=== PATIENT | female | born 2000 | race Caucasian/White ===

== ENCOUNTER 2025-01-15 19:18 | Emergency (ER) | payer BC, SELFPAY ==
--- NOTE | ~2025-01-15 | CT_ITS ---
History: Blunt head trauma PROCEDURE: CT head without contrast. COMPARISON: None TECHNIQUE: Axial imaging of the head performed from the skull base to the vertex without IV contrast. Sagittal a nd coronal reformations obtained. Examination is somewhat limited secondary to motion artifact DLP: 605 mGy-cm FINDINGS: The ventricles are normal in size, shape and position. There is no mass, mass effect or midline shift. There is no abnormal extra-axial fluid collection or intracranial hemorrhage. Visualized paranasal sinuses are clear. The mastoid air cells are well aerated. No acute displaced fractures within the overlying cranium. Impression: No acute intracranial hemorrhage or suspicious mass effect. Reviewed, dictated and finalized at location A. Impression: No acute intracranial hemorrhage or suspicious mass effect.
[2025-01-15 19:17] VITALS: BP 126/74; PULSE 89; RESP 19; TEMP 36.9; O2SAT 100
[2025-01-15] MEDS: HYDROGEN PEROXIDE 3% SOLN(*SP) 473 ML BOTTLE (19:38)
[2025-01-15 20:09] VITALS: BP 126/74; PULSE 89; RESP 19; TEMP 36.9; O2SAT 100
--- NOTE | 2025-01-15 20:12 | ED_ITS ---
HPI - General Adult General Chief complaint: Head Injury Stated complaint: HEAD INJURY Time Seen by Provider: 01/15/25 19:22 History of Present Illness HPI narrative: This is a 24-year-old female presenting with a head injury. She found out tissue failed blood her college courses and kicked a steel bar off of her bed which then struck her on top of her head on the edge. She did not have loss of conscious but she did immediately started bleeding. No persistent vomiting. His blood thinners or alcohol. No numbness tingling weakness in the extremity. Exam Narrative: APPEARANCE: No apparent distress. Head: 3 cm scalp laceration over the parietal region EYES: EOMI, NOSE: Atraumatic NECK: Trachea midline RESPIRATORY: No increased rate of breathing CARDIOVASCULAR: RRR, ABDOMINAL: Non-distended MUSCULOSKELETAl: No obvious deformities NEURO: Alert. Cranial nerves 2-12 grossly intact. Sensation light touch, motor function cerebellar function intact for 4 extremities. Gait exam was normal. SKIN:: Warm, dry. Normal color PSYCHIATRIC: Normal affect Course Vital Signs Vital signs: Vital Signs Temperature 98.4 F 01/15/25 19:17 Pulse Rate 89 01/15/25 19:17 Respiratory Rate 19 01/15/25 19:17 Blood Pressure 126/74 01/15/25 19:17 Pulse Oximetry 100 01/15/25 19:17 Oxygen Delivery Room Air 01/15/25 19:17 Temperature 98.4 F 01/15/25 20:09 Pulse Rate 89 01/15/25 20:09 Respiratory Rate 19 01/15/25 20:09 Blood Pressure 126/74 01/15/25 20:09 Pulse Oximetry 100 01/15/25 20:09 Oxygen Delivery Room Air 01/15/25 19:17 Procedures Laceration Laceration 1: Date: 01/15/25 Site: scalp Side (If applicable): right Size (cm): 3 Description: linear Depth: simple, single layer Local Anesthetic: bupivacaine 0.25% Amount of anesthesia used (mL): 5 Pre-repair: wound explored and irrigated extensively ====== Skin Level ====== Skin layer closed with: saw Size (cm): other Number of sutures: 7 ====== Subcutaneous Layer ====== ====== Muscle Layer ====== ====== Tendon Layer ====== Medical Decision Making MDM Narrative Medical decision making narrative: -Course: 24-year-old female presenting after a steel michael dropped on head. A 3 cm laceration was repaired with sutures. CT head was negative for skull fracture intracranial hemorrhage. Patient be discharged primary care physician. Given return precautions. -DDX includes but is not limited to: Intracranial hemorrhage, concussion, scalp laceration Vital Signs Vital Signs: Vital Signs Temperature 98.4 F 01/15/25 19:17 Pulse Rate 89 01/15/25 19:17 Respiratory Rate 19 01/15/25 19:17 Blood Pressure 126/74 01/15/25 19:17 Pulse Oximetry 100 01/15/25 19:17 Oxygen Delivery Room Air 01/15/25 19:17 Temperature 98.4 F 01/15/25 20:09 Pulse Rate 89 01/15/25 20:09 Respiratory Rate 19 01/15/25 20:09 Blood Pressure 126/74 01/15/25 20:09 Pulse Oximetry 100 01/15/25 20:09 Oxygen Delivery Room Air 01/15/25 19:17 Discharge Plan Discharge Clinical Impression: Closed head injury, Laceration of scalp Patient Disposition: Home Condition: Stable Instructions: Antibiotic Form, Concussion (ED), Staple Care (ED), Head Laceration (ED) Additional Instructions: You were seen in the emergency department after a steel pipe dropped on your head. The saw should be removed by medical professional in 5-7 days. Ple ase follow-up your primary care physician further management. Return to the ED if you develop any new or worsening symptoms. Patient Language: Kazakh
--- OUTSIDE RECORDS SUMMARY | 2025-01-15 20:56 | XMS_ITS | Encounter Summary ---
Author Organization [facility] Address [address] [place] [address] Care Team Providers Care Prosthetic Dentist Name Role Phone Missy Barth [facility] Primary Care Provider Siva Tesfaye MD Unavailable [phone] Jammie Kaur MD Primary Care Provider [phone] Encounter Details Date Type Department Care Team (Late Contact Info) Description 10/17/2021 MyChart Message Enc [address] [address] Missy Barth [facility] Blood Work Social History Tobacco Use Types Packs/Day Years Used Date Smoking Tobacco: Never Smokeless Tobacco: Never Alcohol Use Standard Drinks/Week Comments Never 0 (1 standard drink = 0.6 oz pur e alcohol) PHQ-2 Answer Date Recorded PHQ-2 Score - If the patient scores above 3, please move on to questions 3-9 4 08/09/2021 Comments No Sex and Gender Information Value Date Recorded Sex Assigned at Female 10/09/2024 7:58 AM TUNNEL MUCKER Legal Sex Female 8:26 PM CDT Gender Identity Not on file Sexual Orientation Not on file COVID-19 Exposure Response Date Recorded In the last month, have you been in contact with someone who was confirmed or suspected to have Coronavirus / COVID-19? No / Unsure 10/10/2021 10:06 AM TUNNEL MUCKER documented as of this encounter Plan of Treatment Upcoming Encounters Date Type Department Care Team (Late Contact Info) Description 03/11/2025 3:20 PM CDT Office Visit [facility] Family Medicine [facility] [address] [place] [phone] Jammie Kaur MD [address] [place] [address] documented as of this encounter Visit Diagnoses Not on filedocumented in this encounter Additional Health Concerns Assessment Noted Time PHQ-9 Depression Total Score: 19 021 8:08 AM TUNNEL MUCKER documented as of this encounter Care Teams Prosthetic Dentist Relationship Specialty Start Date End Date Missy Barth [facility] PCP - General NURSE PRACTITIONER 01/19/21 04/06/24 Jammie Kaur MD [address] [place] [address] PCP - General FAMILY PRACTICE 04/07/24 Siva Bliss MD [address] [place] [phone] Psychiatry 08/09/21 documented as of this encounter
--- OUTSIDE RECORDS SUMMARY | 2025-01-15 20:56 | XMS_ITS | Encounter Summary ---
Author Organization [facility] Address [address] [place] [address] Care Team Providers Care Cash Management Clerk Name Role Phone [facility] Primary Care Provider Siva Tesfaye MD Unavailable [phone] Jammie Kaur MD Primary Care Provider [phone] Encounter Details Date Type Department Care Team (Late st Contact Info) Description 02/12/2022 MyChart Message Enc [facility] Orthopedic & Sports Medicine - [place] [address] [place] [address] Dallas Blake MD [address] [place] [address] My Pinky Social History Tobacco Use Types Packs/Day Years [...] Sex Assigned at Female 10/09/2024 7:58 AM INSURANCE CLAIM REPRESENTATIVE Legal Sex Female 8:26 PM CDT Gender Identity Not on file Sexual Orientation Not on file COVID-19 Exposure Response Date Recorded In the last 10 days, have yo u been in contact with someone who was confirmed or suspected to have Coronavirus/COVID-19? No / Unsure 01/25/2022 10:28 AM CDT documented as of this encounter Plan of Treatment Upcoming Encounters Date Type Department Care Team (Late st Contact Info) Description 03/11/2025 3:20 PM CDT Office Visit [facility] Family Medicine [facility] [address] [place] [address] Jammie Kaur MD [address] [place] [address] documented as of this encounter Visit Diagnoses Not on filedocumented in this encounter Additional Health Concerns Assessment Noted Time PHQ-9 Depression Total Score: 19 021 8:08 AM INSURANCE CLAIM REPRESENTATIVE documented as of this encounter Care Teams Cash Management Clerk Relationship Specialty Start Date End Date [facility] PCP - General NURSE PRACTITIONER 01/19/21 04/06/24 Jammie Kaur MD [address] [place] [address] PCP - General FAMILY PRACTICE 04/07/24 Siva Bliss MD [address] [place] [phone] Psychiatry 08/09/21 documented as of this encounter
--- OUTSIDE RECORDS SUMMARY | 2025-01-15 20:56 | XMS_ITS | Encounter Summary ---
Author Organization [facility] Address [address] [place] [address] Care Team Providers Care Potable Water Treatment Operator Name Role Phone Jaredjared Missy [facility] Primary Care Provider Siva Tesfaye MD Unavailable [phone] Jammie Kaur MD Primary Care Provider [phone] Encounter Details Date Type Department Care Team (Late Contact Info) Description 12/18/2023 [employer] Message Enc [address] [address] [facility] Provider please call office Social History Tobacco Use Types Packs/Day Years Used Date Smoking Tobacco: Never Smokeless Tobacco: Never Alcohol Use Standard Drinks/Week Comments Never 0 (1 standard drink = 0.6 oz pur e alcohol) PHQ-2 Answer Date Recorded Patient Health Questionnaire-2 Score 0 12/17/2023 Comments No Sex and Gender Information Value Date Recorded Sex Assigned at Female 10/09/2024 7:58 AM LABORATORY APPARATUS GLASS GRINDER Legal Sex Female 8:26 PM CDT Gender Identity Not on file Sexual Orientation Not on file documented as of this encounter Plan of Treatment Upcoming Encounters Date Type Department Care Team (Late Contact Info) Description 03/11/2025 3:20 PM CDT Office Visit [address] [address] [place] [address] [place] [address] documented as of this encounter Visit Diagnoses Not on filedocumented in this encounter Additional Health Concerns Assessment Noted Time PHQ-9 Depression Total Score: 0 12/17/19 24 1:27 PM CDT documented as of this encounter Care Teams Potable Water Treatment Operator Relationship Specialty Start Date End Date [facility] PCP - General NURSE PRACTITIONER 01/19/21 04/06/24 Jammie Kaur MD [address] [place] [address] PCP - General FAMILY PRACTICE 04/07/24 Siva Bliss MD [address] [place] [address] Psychiatry 08/09/21 documented as of this encounter
--- OUTSIDE RECORDS SUMMARY | 2025-01-15 20:56 | XMS_ITS | Clinical Summary ---
Author Organization [facility] Address [address] [place] [address] Care Team Providers Care General Medical Practitioner Name Role Phone Siva Bliss MD Unavailable [phone] Jammie Kaur MD Primary Care Provider [phone] Allergies Active Allergy Reactions Criticality Noted Date Comments Penicillins Hives Medium 05/04/2019 Sulfa Antibiotics Rash Low 01/19/2021 Medications triamcinolone (KENALOG) 0.1 % ointment Apply topically as needed. Active buPROPion XL (WELLBUTRIN XL) 150 MG 24 hr tabletIndication s:Anxiety Take 1 tablet (150 mg total) by mouth daily. 90 tablet 1 5 Active ibuprofen (MOTRIN) 800 MG tabletIndication s:Sprain of anterior talofibular ligament of left ankle, initial encounter Take 1 tablet (800 mg total) by mouth every 6 (six) hours as needed for Pain. 90 tablet 1 5 Active escitalopram (LEXAPRO) 20 MG tabletIndication s:Situational anxiety Take 1 tablet (20 mg total) by mouth daily. 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 Chronic low back pain withou t sciatica, unspecified back pain laterality 05/13/2020 Tinea versicolor 05/13/2020 ADHD 12/08/2019 Anxiety 05/13/2019 Episodic mood disorder 05/13/2019 Resolved Problems Problem Noted Date Diagnosed Date Resolved Date Hematuria, unspecified type 12/08/2019 01/19/2021 Dysuria 12/08/2019 01/19/2021 Encounters Date Type Department Care Team Description 10/19/2024 Telephone [facility] [address] [address] Jammie Kaur MD Question; Information from Last 3 Months Immunizations Immunization Administration Dates Next Due Dtap 06/21/2007, 4,2002,09/26,2002 Dtap (Generic) 06/21/2007, 4,2002,09/26,2002 Fluzone (IIV3, Trivalent, 0. 5 ML Prefilled Syringe) 10/16/2024 Fluzone 6 Months+ Quad (0.5 mL Prefilled Syringe) 08/09/2022 HPV 07/13/2016,06/27/2015,06/25/2014 HPV GARDASIL 9-VALENT 07/13/2016,06/27/2015 HPV4 (Gardasil) 06/25/2014 Hepatitis A (Generic) 07/14/2005,06/10/2004 Hepatitis A Vaccine - 2 Dose 07/14/2005,06/10/20 04 Hepatitis B (Generic Peds) 04/28/2003,,2002,04/28 Hepatitis B Pediatric 04/28/2003, 003,2002,04/28 Hib (Generic) 08/14/2003, 3,2002,07/24 Hib Vaccine, Prp-T 08/14/2003, 3,2002,07/24 Influenza (Generic) 07/13/2016, 5,06/25/2014,10/30,06/21/2007,07/14/2005,06/10/2004 Influenza Adult (Generic) 07/13/2016,,06/25/2014,10/30,06/21/2007,07/14/2005,06/10/2004 MMR 06/21/2007,05/08/2003 MMR (Generic) 06/21/2007,05/08/2003 MODERNA COVID-19 (12+) MRNA, LNP-S, PF, 100 MCG/ 0.5 ML DOSE 03/07/2021,02/07/2021 Menactra 05/13/2019,06/25/2014 Meningcoccal Group B (Bexser o)(aka Meningitis) 05/13/2019 Meningcoccal Group B (Trumen ba)(aka Meningitis) 10/16/2024 Meningococcal (Menactra) 05/13/2019 Meningococcal B 05/13/2019 Meningococcal Vac A,C,Y,W-135 Sc 05/13/2019 Meningococcal(Mcv 4)Aka Menactra 06/25/2014 Pneumococcal (Prevnar 7) 08/14/2003,04/11,02/06/2003,11/28,2002 Polio IPV (Ipol) 06/21/2007, 4,2002,07/24 Polio Ipv (Generic) 06/21/2007, 4,2002,07/24 Tdap (Boostrix) 01/17/2021 Tdap (Generic) 06/25/2014 Varicella (Generic) 06/21/2007,05/08/2003 Varicella Vaccine 06/21/2007,05/08/2003 Family History Medical History Relation Comments Diabetes Mother Hyperlipidemia Mother Hypertension Mother Allergies Sister Fibromyalgia Sister Relation Status Comments Father Alive Mother Alive Sister Alive Social History Tobacco Use Types Packs/Day Years Used Date Smoking Tobacco: Never Cigarettes Qu it: 09/03/2024 Smokeless Tobacco: Never Tobacco Cessation:Counseling Given: Yes Alcohol Use Standard Drinks/Week Comments Never 0 (1 standard drink = 0.6 oz pur e alcohol) PHQ-2 Answer Date Recorded Patient Health Questionnaire-2 Score 0 10/14/2024 Comments No Sex and Gender Information Value Date Recorded Sex Assigned at Female 10/09/2024 7:58 AM COAT IRONER HAND Legal Sex Female 8:26 PM CDT Gender Identity Not on file Sexual Orientation Not on file Last Filed Vital Signs Vital Sign Reading Time Taken Comments Blood Pressure 132/80 10/14/2024 2:50 PM COAT IRONER HAND Pulse 73 10/14/2024 2:50 PM COAT IRONER HAND Temperature 36.7 C (98 F) 10/14/2024 2:50 PM COAT IRONER HAND Respiratory Rate 18 10/14/2024 2:50 PM COAT IRONER HAND Oxygen Saturation 98% 10/14/2024 2:50 PM COAT IRONER HAND Inhaled Oxygen Concentration - - Weight 78.5 kg (173 lb) 10/14/2024 2:50 PM COAT IRONER HAND Height 170.2 cm (5' 7 ) 10/14/2024 2:50 PM COAT IRONER HAND Body Mass Index 27.1 10/14/2024 2:50 PM COAT IRONER HAND Plan of Treatment Upcoming Encounters Date Type Department Care Team (Late st Contact Info) Description 03/11/2025 3:20 PM CDT Office Visit [facility] Family [facility] [address] [place] [address] Jammie Kaur MD [address] [place] [address] Health Maintenance Due Date Last Done Comments Cervical Cancer Screening Pap Smear (Age 21 to 29) Every 3 Years 2002 Cervical Cancer Screening 2002 COVID-19 Vaccine ( season) 2024 03/07/2021, 02/07/2021 Meningococcal B Vaccine (2 of 2 - Bexsero SCDM 2-dose series) 02/13/2025 10/16/2024, 05/13/2019 Annual Physical 04/07/2025 04/07/2024, 0905/2022, 01/19/2021 Chlamydia Screening Females ages 16-24 08/14/2025 08/14/2024, 05/01/2022, 09/27/2021, Additional history exists DTaP, Tdap and Td Vaccines (8 - Td or Tdap) 01/17/2031 01/17/2021, 06/25/2014, 06/21/2007, Additional history exists Hepatitis B Vaccines Completed 04/28/2003, 04/28/2003, 02/06/2003, Additional history exists Pneumococcal Vaccine: Pediatrics (0 to 5 Years) and At-Risk Patients (6 to 49 Years) Aged Out 08/14/2003, 05/08/2003, 02/06/2003, Additional history exists No longer eligible based on patient's age to complete this topic HPV Vaccines Completed 07/13/2016, 12/2015, 06/27/2015, Additional history exists Meningococcal Vaccine Aged Out 05/13/2019 , 05/13/2019, 05/13/2019, Additional history exists No longer eligible based on patient's age to complete this topic Hepatitis C Completed 04/15/2024 PHQ-2 (Physician [place]) Completed 10/14/2024 RSV Immunizations Under 20 Months Aged Out No longer eligible based on patient's age to complete this topic Procedures Procedure Name Priority Date/Time Associated Diagnosis Comments CHLAMYDIA GC RNA STAT 08/14/2024 12:1 3 AM COAT IRONER HAND HEPATITIS C ANTIBODY Routine 04/15/2024 1:07 PM CDT Encounter for hepatitis C screening test for low risk patient from Last 3 Months or Most Recently Relevant to Health Maintenance Results * CHLAMYDIA GC RNA (08/14/2024 12:13 AM COAT IRONER HAND) SPEC DESCRIPTION VAGINAL SPECIMEN 08/14/2024 12:31 AM COAT IRONER HAND [facility] CHLAMYDIA RNA TMA NEGATIVE NEGATIVE 024 6:09 PM COAT IRONER HAND [facility] Comment:PERFORMED BY NUCLEIC ACID AMPLIFICATION N.GONORRHOEAE RNA TMA NEGATIVE NEGATIVE 08/14/2024 6:09 PM COAT IRONER HAND [facility] Comment:PERFORMED BY NUCLEIC ACID AMPLIFICATION CERVIX UTERI STRUCTURE / Unknown 08/14/2024 12:13 AM COAT IRONER HAND us Sherita LOPEZ MICROBIOLOGY - GENERAL SHIV ABRAHAM Final Result [facility] [address] [id number], [facility] [address] [place] [address], * HEPATITIS C ANTIBODY (04/15/2024 1:07 PM CDT) HEPATITIS C AB NON-REACTI VE NON-REACT ROGELIO 04/15/2024 10:09 PM CDT [facility] Comment: ANTIBODIES TO HCV NOT DETECTED. DOES NOT EXCLUDE THE POSSIBILITY OF EXPOSURE TO HCV. 04/15/2024 1:07 PM CDT Jammie Kaur MD LABORATORY Final Result [facility] [address] [place] [address], [place] [phone] [id number] from Last 3 Months or Most Recently Relevant to Health Maintenance Insurance Care Teams General Medical Practitioner Relationship Specialty Start Date End Date Jammie Kaur MD [address] [place] [address] PCP - General FAMILY PRACTICE 04/07/24 Siva Bliss MD [address] [place] [address] Psychiatry 08/09/21
--- OUTSIDE RECORDS SUMMARY | 2025-01-15 20:56 | XMS_ITS | Encounter Summary ---
Author Organization [facility] Address [address] [place] [address] Care Team Providers Care Media Specialist Name Role Phone Missy BarthFORMERLY [facility] Primary Care Provider Siva Tesfaye MD Unavailable [phone] Jammie Kaur MD Primary Care Provider [phone] Encounter Details Date Type Department Care Team (Late Contact Info) Description 11/14/2021 MyChart Message Enc [address] [address] [facility]y Barth [facility] Medication Social History Tobacco Use Types Packs/Day Years [...] Sex Assigned at Female 10/09/2024 7:58 AM HEEL STIFFENER Legal Sex Female 8:26 PM CDT Gender Identity Not on file Sexual Orientation Not on file COVID-19 Exposure Response Date Recorded In the last 10 days, have yo u been in contact with someone who was confirmed or suspected to have Coronavirus/COVID-19? No / Unsure 11/14/2021 8:35 AM HEEL STIFFENER documented as of this encounter Plan of Treatment Upcoming Encounters Date Type Department Care Team (Late Contact Info) Description 03/11/2025 3:20 PM CDT Office Visit [facility] Family Medicine [facility] [address] [place] [phone] Jammie Kaur MD [facility] [place] [address] documented as of this encounter Visit Diagnoses Not on filedocumented in this encounter Additional Health Concerns Assessment Noted Time PHQ-9 Depression Total Score: 19 021 8:08 AM HEEL STIFFENER documented as of this encounter Care Teams Media Specialist Relationship Specialty Start Date End Date Missy Barth F[facility]ORMERLY [facility] PCP - General NURSE PRACTITIONER 01/19/21 04/06/24 Jammie Kaur MD [address] [place] [address] PCP - General FAMILY PRACTICE 04/07/24 Siva Bliss MD [address] [place] [phone] Psychiatry 08/09/21 documented as of this encounter
--- OUTSIDE RECORDS SUMMARY | 2025-01-15 20:56 | XMS_ITS | Encounter Summary ---
Author Organization [facility] Address [address] [place] [address] Care Team Providers Care Cashier Checker Name Role Phone Siva Bliss MD Unavailable [phone] Jammie Kaur MD Primary Care Provider [phone] Encounter Details Date Type Department Care Team (Late st Contact Info) Description 08/11/[address] [facility] Family Medicine [facility] [address] [place] [address] [place] [address] [place] [address] Yeast Infection Social History Tobacco Use Types Packs/Day Years Used Date Smoking Tobacco: Never Smokeless Tobacco: Never Alcohol Use Standard Drinks/Week Comments Never 0 (1 standard drink = 0.6 oz pur e alcohol) PHQ-2 Answer Date Recorded Patient Health Questionnaire-2 Score 1 04/07/2024 Comments No Sex and Gender Information Value Date Recorded Sex Assigned at Female 10/09/2024 7:58 AM MUSHROOM PICKER Legal Sex Female 8:26 PM CDT Gender Identity Not on file Sexual Orientation Not on file documented as of this encounter Functional Status * Calculated C-SSRS Risk Score (Lifetime/Recent) Answer Date of Assessment Author Status No Risk Indicated 08/13/2024 11:40 PM MUSHROOM PICKER Topher Juarez RN Active * [place] Suicide Severity Rating Scale (Screener/Recent Self-Report) Question Answer Date of Assessment Author Status 1. Wish to be (Past 1 Month) No 08/13/2024 11:40 PM MUSHROOM PICKER Renay Juarez RN A ctive 2. Non-Specific Active Suicidal Thoughts (Past 1 Month) No 08/13/2024 11:40 PM MUSHROOM PICKER Renay Juarez RN A ctive 6. Suicidal Behavior (Lifetime) No 08/13/2024 11:40 PM MUSHROOM PICKER Renay Juarez RN A ctive documented as of this encounter Plan of Treatment Upcoming Encounters Date Type Department Care Team (Late st Contact Info) Description 03/11/2025 3:20 PM CDT Office Visit [facility] Family Medicine [facility] [address] [place] [phone] Jammie Kaur MD [address] [place] [address] documented as of this encounter Visit Diagnoses Not on filedocumented in this encounter Additional Health Concerns Assessment Noted Time PHQ-9 Depression Total Score: 5 04/07/20 24 1:02 PM CDT documented as of this encounter Care Teams Cashier Checker Relationship Specialty Start Date End Date Jammie Kaur MD [address] [place] [address] PCP - General FAMILY PRACTICE 04/07/24 Siva Bliss MD [address] [place] [phone] Psychiatry 08/09/21 documented as of this encounter
--- OUTSIDE RECORDS SUMMARY | 2025-01-15 20:56 | XMS_ITS | Encounter Summary ---
Author Organization [facility] Address [address] [place] [address] Care Team Providers Care Quality Inspector Name Role Phone [facility] Primary Care Provider Siva Tesfaye MD Unavailable [phone] Jammie Kaur MD Primary Care Provider [phone] Encounter Details Date Type Department Care Team ([facility] [address] [facility] Contact Info) Description 06/20/2022 MyChart Message Enc [facility] Medical [address] [address] [facility] Ear infection and mucus problems Social History Tobacco Use Types Packs/Day Years Used Date Smoking Tobacco: Never Smokeless Tobacco: Never Alcohol Use Standard Drinks/Week Comments Never 0 (1 standard drink = 0.6 oz pur e alcohol) PHQ-2 Answer Date Recorded PHQ-2 Score - If the patient scores above 3, please move on to questions 3-9 0 05/18/2022 Comments No Sex and Gender Information Value Date Recorded Sex Assigned at Female 10/09/2024 7:58 AM NIGHT SHIFT Legal Sex Female 8:26 PM CDT Gender Identity Not on file Sexual Orientation Not on file COVID-19 Exposure Response Date Recorded In the last 10 days, have yo u been in contact with someone who was confirmed or suspected to have Coronavirus/COVID-19? No / Unsure 05/25/2022 2:19 PM CDT documented as of this encounter Plan of Treatment Upcoming Encounters Date Type Department Care Team (Late Contact Info) Description 03/11/2025 3:20 PM CDT Office Visit [facility] Medical Group Family Medicine [facility] [address] [place] [phone] Jammie Kaur MD [facility] [place] [address] documented as of this encounter Visit Diagnoses Not on filedocumented in this encounter Additional Health Concerns Assessment Noted Time PHQ-9 Depression Total Score: 0 05/18/20 22 10:16 AM CDT documented as of this encounter Care Teams Quality Inspector Relationship Specialty Start Date End Date Missy Barth [facility] PCP - General NURSE PRACTITIONER 01/19/21 04/06/24 Jammie Kaur MD [facility] [place] [address] PCP - General FAMILY PRACTICE 04/07/24 Siva Bliss MD [address] [place] [phone] Psychiatry 08/09/21 documented as of this encounter
--- OUTSIDE RECORDS SUMMARY | 2025-01-15 20:56 | XMS_ITS | Encounter Summary ---
Author Organization [facility] Address [address] [place] [address] Care Team Providers Care Coverage Analyst Name Role Phone Missy Barth- Primary Care Provider Siva Tesfaye MD Unavailable [phone] Jammie Kaur MD Primary Care Provider Encounter Details Date Type Department Care Team (Late Contact Info) Description 08/25/2021 MyChart Message Enc [address] [address] Missy Barth FNP-BC UTI? Social History Tobacco Use Types Packs/Day Years [...] Sex Assigned at Female 10/09/2024 7:58 AM CREDIT COLLECTIONS CLERK Legal Sex Female 8:26 PM CDT Gender Identity Not on file Sexual Orientation Not on file COVID-19 Exposure Response Date Recorded In the last month, have you been in contact with someone who was confirmed or suspected to have Coronavirus / COVID-19? No / Unsure 08/09/2021 7:57 AM CREDIT COLLECTIONS CLERK documented as of this encounter Plan of Treatment Upcoming Encounters Date Type Department Care Team (Late Contact Info) Description 03/11/2025 3:20 PM CDT Office Visit [facility] Family Medicine [facility] [address] [place] [phone] Jammie Kaur MD [address] [place] [address] documented as of this encounter Visit Diagnoses Not on filedocumented in this encounter Additional Health Concerns Assessment Noted Time PHQ-9 Depression Total Score: 19 021 8:08 AM CREDIT COLLECTIONS CLERK documented as of this encounter Care Teams Coverage Analyst Relationship Specialty Start Date End Date [facility] PCP - General NURSE PRACTITIONER 01/19/21 04/06/24 Jammie Kaur MD [address] [place] [address] PCP - General FAMILY PRACTICE 04/07/24 Siva Bliss MD [address] [place] [phone] Psychiatry 08/09/21 documented as of this encounter
--- OUTSIDE RECORDS SUMMARY | 2025-01-15 20:56 | XMS_ITS | Clinical Summary ---
Author Organization [facility] [employer] Address [address] [place] [address] Care Team Providers Care Optometrist President/Practice Owner Name Role Phone Unavailable Primary Care Provider Unavailabl e Source Comments [facility],non-owned Affiliates and Associated Physician Practices is amultiple site organization consisting of ambulatory clinics and hospital sitesin [place], [place], [place] and [place]. This disclosure is being madepursuant to the Care Everywhere program and may not contain all information available regarding this patient. Last updated 18.[facility] [employer] Allergies Active Allergy Reactions Criticality Noted Date Comments Penicillins Urticaria Medium 05/04/2019 Medications * Be aware that medications may not be up to date on this document. Alwaysverify current medications with the patient. No known medications Active Problems Problem Noted Date Diagnosed Date Mood disorder 05/13/2019 Anxiety 05/13/2019 Midline low back pain without sciatica Frequent headaches BMI (body mass index), pedia tric, 85% to less than 95% for age ADHD Resolved Problems Problem Noted Date Diagnosed Date Resolved Date Shortness of breath on exertion 05/13/2019 Other seasonal allergic rhinitis 05/13/2019 Immunizations Immunization Administration Dates Next Due DTaP VACCINE IM (6wk-6yrs) 06/21/2007,,2002,09/26,2002 HEP A PEDS 2 DOSE 07/14/2005,06/10/2004 HEP B VACCINE, PED/ADOL 02/06/2003,2002, HIB-PRP-T 4 DOSE 08/14/2003, 3,2002,07/24 Human Papilloma Virus Vaccine 07/13/2016, 015,06/25/2014 INFLUENZA VACCINE 07/13/2016, 5,06/25/2014,10/30,06/21/2007,07/14/2005,06/10/2004 MENINGOCOCAL MENINGITIS 06/25/2014 MENINGOCOCCAL ACWY (MCV4P) VAC IM 05/13/2019 MMR 06/21/2007,05/08/2003 Meningococcal B Recombinant 2 Dose, IM 9 PNEUMOCOCCAL PCV7 CONJ, PEDS 08/14/2003, 02/06/2003,2002,09/26 POLIO IPV 06/21/2007, 4,2002,07/24 TDAP (7yrs+) 06/25/2014 VARICELLA 06/21/2007,05/08/2003 Family History Medical History Relation Name Comments Bipolar Disorder Father None Known Maternal Grandfather Arthritis - Rheumatoid Maternal Grandmother Depression Maternal Grandmother ADD/ADHD Mother Depression Mother Diabetes - Type 2 Mother Hypertension Mother None Known Paternal Grandfather None Known Paternal Grandmother Relation Name Status Comments Father Alive Maternal Grandfather Other Maternal Grandmother Alive Mother Alive Paternal Grandfather Other Paternal Grandmother Other Social History Tobacco Use Types Packs/Day Years Used Date Smoking Tobacco: Never Smokeless Tobacco: Never Comments:tried vaping once b ut didn't like it Alcohol Use Standard Drinks/Week Comments Never 0 (1 standard drink = 0.6 oz pur e alcohol) AUDIT-C Answer Date Recorded Frequency of Alcohol Consumption Never 05/13/2019 Average Number of Drinks Not on file 019 Frequency of Binge Drinking Not on file 12/2018 Comments Unknown Sex and Gender Information Value Date Recorded Sex Assigned at Not on file Legal Sex Female 11:47 AM CDT Gender Identity Not on file Sexual Orientation Not on file Last Filed Vital Signs Vital Sign Reading Time Taken Comments Blood Pressure 110/70 05/13/2019 10:01 AM CDT Pulse 66 05/13/2019 10:01 AM CDT Temperature 36.8 C (98.2 F) 05/13/2019 10:01 AM CDT Respiratory Rate 18 05/13/2019 10:01 AM CDT Oxygen Saturation - - Inhaled Oxygen Concentration - - Weight 79.4 kg (175 lb) 05/13/2019 10:01 AM CDT Height 166 cm (5' 5.35 ) 05/13/2019 10:01 AM CDT Body Mass Index 28.81 05/13/2019 10:01 AM CDT Plan of Treatment Health Maintenance Due Date Last Done Comments HIV SCREENING 2017 CHLAMYDIA/GONORRHEA SCREENING 2018 MENINGOCOCCAL (Group B) VACC INE SHARED DECISION-MAKING (2 of 2 - Bexsero SCDM 2-dose series) 11/11/2019 05/13/2019 HEPATITIS C SCREENING 04/22/2020 COVID-19 VACCINE (3 - 2023-2 5 season) 2024 03/07/2021, 02/07/2021 DTAP/TDAP/TD VACCINES (7 - T d or Tdap) 06/25/2024 06/25/2014, 06/21/2007, 02/21/2004, Additional history exists DEPRESSION SCREENING 09/09/2024 INFLUENZA VACCINE (Season Ended) 2025 07/13/2016, 06/27/2015, 06/25/2014, Additional history exists ZOSTER VACCINE (1 of 2) 2052 HEPATITIS B VACCINE Completed 02/06/2003, 2002, 2002 HIB VACCINE Completed 08/14/2003, 11/08, 2002, Additional history exists PNEUMOCOCCAL VACCINE Completed 08/14/2003, 02/06/2003, 2002, Additional history exists HPV VACCINE Completed 07/13/2016, 06/09, 06/25/2014 MENINGOCOCCAL GROUPS A/C/Y/W VACCINE Completed 05/13/2019, 06/25/2014 Insurance LO
--- OUTSIDE RECORDS SUMMARY | 2025-01-15 20:56 | XMS_ITS | Encounter Summary ---
Author Organization [facility] Address [address] [place] [address] Care Team Providers Care Bulk Delivery Driver Name Role Phone Missy Barth [facility] Primary Care Provider Siva Tesfaye MD Unavailable [phone] Jammie Kaur MD Primary Care Provider [phone] Encounter Details Date Type Department Care Team (Late Contact Info) Description 11/12/2021 MyChart Message Enc [address] [address] [facility] Herpes Social History Tobacco Use Types Packs/Day Years [...] Sex Assigned at Female 10/09/2024 7:58 AM CARTRIDGE ASSEMBLING MACHINE ADJUSTER Legal Sex Female 8:26 PM CDT Gender Identity Not on file Sexual Orientation Not on file COVID-19 Exposure Response Date Recorded In the last 10 days, have yo u been in contact with someone who was confirmed or suspected to have Coronavirus/COVID-19? No / Unsure 11/14/2021 8:35 AM CARTRIDGE ASSEMBLING MACHINE ADJUSTER documented as of this encounter Plan of Treatment Upcoming Encounters Date Type Department Care Team (Late Contact Info) Description 03/11/2025 3:20 PM CDT Office Visit [facility] Family Medicine [facility] [address] [place] [phone] Jammie Kaur MD [facility] [place] [address] documented as of this encounter Visit Diagnoses Not on filedocumented in this encounter Additional Health Concerns Assessment Noted Time PHQ-9 Depression Total Score: 19 021 8:08 AM CARTRIDGE ASSEMBLING MACHINE ADJUSTER documented as of this encounter Care Teams Bulk Delivery Driver Relationship Specialty Start Date End Date [facility] - General NURSE PRACTITIONER 01/19/21 04/06/24 Jammie Kaur MD [address] [place] [address] PCP - General FAMILY PRACTICE 04/07/24 Siva Bliss MD [address] [place] [phone] Psychiatry 08/09/21 documented as of this encounter
--- OUTSIDE RECORDS SUMMARY | 2025-01-15 20:56 | XMS_ITS | Encounter Summary ---
Author Organization [facility] Address [address] [place] [address] Care Team Providers Care Cylinder Sander Operator Name Role Phone Missy Barth [facility] Primary Care Provider Siva Tesfaye MD Unavailable [phone] Jammie Kaur MD Primary Care Provider [phone] Encounter Details Date Type Department Care Team (Late Contact Info) Description 05/18/2021 MyChart Message Enc [facility] Medical [address] [address] [facility] RE: Medication Questions Social History Tobacco Use Types Packs/Day Years Used Date Smoking Tobacco: Never Smokeless Tobacco: Never Alcohol Use Standard Drinks/Week Comments Never 0 (1 standard drink = 0.6 oz pur e alcohol) PHQ-2 Answer Date Recorded PHQ-2 Score - If the patient scores above 3, please move on to questions 3-9 4 01/19/2021 Comments No Sex and Gender Information Value Date Recorded Sex Assigned at Female 10/09/2024 7:58 AM INSTRUCTION DEAN Legal Sex Female 8:26 PM CDT Gender Identity Not on file Sexual Orientation Not on file COVID-19 Exposure Response Date Recorded In the last month, have you been in contact with someone who was confirmed or suspected to have Coronavirus / COVID-19? No / Unsure 05/10/2021 7:04 AM CDT documented as of this encounter Plan of Treatment Upcoming Encounters Date Type Department Care Team (Late Contact Info) Description 03/11/2025 3:20 PM CDT Office Visit [facility] Medical Group Family Medicine [facility] [address] [place] [phone] Jammie Kaur MD [address] [place] [address] documented as of this encounter Visit Diagnoses Not on filedocumented in this encounter Additional Health Concerns Assessment Noted Time PHQ-9 Depression Total Score: 20 021 11:06 AM CDT documented as of this encounter Care Teams Cylinder Sander Operator Relationship Specialty Start Date End Date Missy Barth [facility] PCP - General NURSE PRACTITIONER 01/19/21 04/06/24 Jammie Kaur MD [facility] [place] [address] PCP - General FAMILY PRACTICE 04/07/24 Siva Bliss MD [address] [place] [phone] Psychiatry 08/09/21 documented as of this encounter
--- OUTSIDE RECORDS SUMMARY | 2025-01-15 20:56 | XMS_ITS | Encounter Summary ---
Author Organization [facility] Address [address] [place] [address] Care Team Providers Care Telephone Operators Supervisor Name Role Phone Missy Barth [facility] Primary Care Provider Siva Tesfaye MD Unavailable [phone] Jammie Kaur MD Primary Care Provider [phone] Encounter Details Date Type Department Care Team ([facility] Contact Info) Description 01/31/2023 MyChart Message Enc [address] [address] Missy Barth [facility] Control Social History Tobacco Use Types Packs/Day Years Used Date Smoking Tobacco: Never Smokeless Tobacco: Never Alcohol Use Standard Drinks/Week Comments Never 0 (1 standard drink = 0.6 oz pur e alcohol) PHQ-2 Answer Date Recorded Patient Health Questionnaire-2 Score 6 12/06/2022 Comments No Sex and Gender Information Value Date Recorded Sex Assigned at Female 10/09/2024 7:58 AM LIBRARY AIDE Legal Sex Female 8:26 PM CDT Gender Identity Not on file Sexual Orientation Not on file COVID-19 Exposure Response Date Recorded In the last 10 days, have yo u been in contact with someone who was confirmed or suspected to have Coronavirus/COVID-19? No / Unsure 01/11/2023 9:17 AM CDT documented as of this encounter Plan of Treatment Upcoming Encounters Date Type Department Care Team ([facility] Contact Info) Description 03/11/2025 3:20 PM CDT Office Visit [address] [place] [address] Jammie Kaur MD [address] [place] [address] documented as of this encounter Visit Diagnoses Not on filedocumented in this encounter Additional Health Concerns Assessment Noted Time PHQ-9 Depression Total Score: 20 023 11:04 AM CDT documented as of this encounter Care Teams Telephone Operators Supervisor Relationship Specialty Start Date End Date Missy Barth [facility] PCP - General NURSE PRACTITIONER 01/19/21 04/06/24 Jammie Kaur MD [address] [place] [address] PCP - General FAMILY PRACTICE 04/07/24 Siva Bliss MD [address] [place] [phone] Psychiatry 08/09/21 documented as of this encounter
--- OUTSIDE RECORDS SUMMARY | 2025-01-15 20:56 | XMS_ITS | Encounter Summary ---
Author Organization [facility] Address [address] [place] [address] Care Team Providers Care Women Specialist Name Role Phone Jaredjared Missy [facility] Primary Care Provider Siva Tesfaye MD Unavailable [phone] Jammie Kaur MD Primary Care Provider [phone] Encounter Details Date Type Department Care Team (Late Contact Info) Description 12/20/2023 [employer] Message Enc [address] [address] [facility] Provider controlled substance agreement Social History Tobacco Use Types Packs/Day Years Used Date Smoking Tobacco: Never Smokeless Tobacco: Never Alcohol Use Standard Drinks/Week Comments Never 0 (1 standard drink = 0.6 oz pur e alcohol) PHQ-2 Answer Date Recorded Patient Health Questionnaire-2 Score 0 12/17/2023 Comments No Sex and Gender Information Value Date Recorded Sex Assigned at Female 10/09/2024 7:58 AM ACCOUNT SUPPORT REP Legal Sex Female 8:26 PM CDT Gender Identity Not on file Sexual Orientation Not on file documented as of this encounter Plan of Treatment Upcoming Encounters Date Type Department Care Team (Late Contact Info) Description 03/11/2025 3:20 PM CDT Office Visit [address] [address] Jammie Kaur MD [address] [place] [address] documented as of this encounter Visit Diagnoses Not on filedocumented in this encounter Additional Health Concerns Assessment Noted Time PHQ-9 Depression Total Score: 0 12/17/19 24 1:27 PM CDT documented as of this encounter Care Teams Women Specialist Relationship Specialty Start Date End Date [facility] PCP - General NURSE PRACTITIONER 01/19/21 04/06/24 Jammie Kaur MD [address] [place] [address] PCP - General FAMILY PRACTICE 04/07/24 Siva Bliss MD [address] [place] [address] Psychiatry 08/09/21 documented as of this encounter
--- OUTSIDE RECORDS SUMMARY | 2025-01-15 20:56 | XMS_ITS | Data Portability ---
Author Organization [facility], [facility] Address [address] [place] [address] Care Team Providers Care Longshore Equipment Operator Name Role Phone [facility] Pain Management Nurse Practitioner Assessment Encounter Date Assessment Date Assessment LastModified by Organization Details LastModified Time 08/21/2024 08/21/2024 The total time spent caring for the patient today was 30 minutes. This includes time spent before the visit reviewing the chart, time spent during the visit, and time spent after the visit on documentation A 24-year-old female with a history of vulval irritation presenting with primary complaints of burning sensation post-urination and seeking HIV testing due to anxiety over potential exposure. The vulval irritation is likely persistent or recurring, with past interventions involving antifungal treatment. The residual burning post-treatment suggests dysuria, possibly linked to a urinary tract infection or other non-inflammatory irritation. The patient's stress and anxiety about her health, especially related to possible HIV exposure, warrant consideration given her recent history of worry-induced appetite loss. Her symptoms and timeline do not strongly suggest a new yeast infection and previous testing negates concurrent bacterial presence in urinary symptoms. Not available 08/26/2024 16:42:18 Plan of Treatment Reminders Order Date Submit Date Provider Last Modified By Organization Details Last Modified Time Details Appointments None recorded. Lab culture, urine 2023 024 [facility], [address] [place], [address], 4 03:28:00 unlisted lab - STD screening ([facility]) 2023 024 [email or web address], [address] [place], [address], 4 11:08:14 bacterial vaginosis + vaginitis panel, vaginal 2023 024 [facility], [address] [place], [address], 4 13:57:43 pap, LB 2023 024 [facility], [address] [facility], [place], [address], 4 17:54:48 unlisted lab - Pap reflex hold 20[address] [facility], [address] [place], [address], 4 14:15:02 STI panel 2023 024 [facility], [address] [place], [address], 4 14:16:53 bacterial vaginosis + vaginitis panel, vaginal 2022 023 [facility], [address] [place], [address], 3 14:07:23 Referral None recorded. Procedures None recorded. Surgeries None recorded. Imaging None recorded. Medication Orders nystatin-tr iamcinolone 100,000 unit/gram-0 .1 % topical ointment 2023 024 [id number], [address] [place], [id number], 4 15:36:39 triamcinolo ne acetonide 0.1 % topical ointment 2023 024 [id number], [address] [place], [id number], 15:27:38 Patient TargetsNo targets recorded. Patient Instructions Encounter Date Encounter Id Patient Instructions Last Modified By Organization Details Last Modified Time 05/15/2024 [id number] Patient Health Questionnaire-9* [email or web address] Not available 05/20/2024 16:15:48 RTC in 1 year fo r WWE, sooner if problems, questions, or concerns [email or web address] Not available 05/20/2024 11:37:11 E-cigs often contain nicotine, a highly addictive substance that can negatively impact brain development, particularly in younger individuals. Vaping poses risks to lung health, including conditions like EVALI (e-cigarette or vaping product use-associated lung injury). EVALI has been linked to the use of aerosolized substances in EC devices, such as contamination with vitamin E acetate. The long-term effects of inhaling vaporized chemicals remain under study, but concerns persist, as e-cigarettes still expose users to harmful substances, such as metals and flavoring agents, that can damage the lungs and heart. Chronic marijuana use can impair cognitive functions like memory, attention, and decision-making. It may also increase the risk of mental health issues, including anxiety, depression, or psychosis, particularly in those predisposed to such conditions. Both smoking and vaping marijuana can damage lung tissue, and marijuana use carries the potential for dependence or cannabis use disorder, particularly with frequent or high-dose consumption. Since both e-cigarettes and marijuana may be used as coping mechanisms for stress or anxiety, addressing any underlying mental health concerns with your psychiatric health provider is essential. palmer Not available 05/20/2024 11:36:26 08/21/2024 [id number] - Follow up pending lab results -Use topical steroid ointment for vulval irritation as prescribed. - Return for reevaluation if symptoms persist or worsen after completing the current treatment plan. - Contact my office if any new symptoms develop or for any questions related to recent interactions concerning potential HIV exposure. palmer Not available 08/26/2024 16:40:59 During the visit , we discussed the importance of comprehensive screening for sexually transmitted infections, including HIV, to alleviate the patient's anxiety. I outlined the process and reassured the patient that her described risk exposure was minimal. We also discussed the potential for a urinary tract infection to be causing her dysuria and agreed to obtain a urine culture to clarify the diagnosis. Not available 08/26/2024 16:41:14 Reason for Referral None Reported. Results Created Date Observation Date Name Description Value Unit Range Abnormal Flag Note LastModifiedBy Organization Detail LastModifiedTime 03/11/2003/13/2023 VAGIN ITIS PLUS STD PANEL bacterial vaginosis BV neg negati ve normal Not Available [facility] [address] [place], [address], 03/13/2023 14:07:23 03/11/20 23 03/13/2023 VAGIN ITIS PLUS STD PANEL alejandro species C. spp neg negati ve normal Not Available [facility] [address] [place] [address], [address], 03/13/2023 14:07:23 03/11/20 23 03/13/2023 VAGIN ITIS PLUS STD PANEL alejandro glabrata C. gla neg negati ve normal Not Available [address], [address], 03/13/2023 14:07:23 03/11/20 23 03/13/2023 VAGIN ITIS PLUS STD PANEL trichomonas vaginalis CV/TV TRICH neg negati ve normal Not Available [facility] [address] [place] [address], [address], 03/13/2023 14:07:23 03/11/20 23 03/13/2023 VAGIN ITIS PLUS STD PANEL chlamydia trachomatis CT neg negati ve normal This repor t is inten ded for us in clini [facility]. It is not inten ded for use in medic al-le gal appli catio n. Not Available [facility] [address] [place], [address], 03/13/2023 14:07:23 03/11/20 23 03/13/2023 VAGIN ITIS PLUS STD PANEL neisseria gonorrhoeae GC neg negati ve normal This repor t is inten ded for us in clini chase monit oring and manag ement of patie nts. It is not inten ded for use in medic al-le gal appli catio n. Not Available [facility] [address] [place] [address], [address], 03/13/2023 14:07:23 12/13/19 24 12/18/2023 STI PANEL trichomonas vaginalis TRICH neg negati ve normal Not Available [address], [address], 12/18/2023 14:16:53 12/13/19 24 12/18/2023 STI PANEL chlamydia trachomatis CT neg negati ve normal This repor t is inten ded for us in clini chase monit oring and manag ement of patie nts. It is not inten ded for use in medic al-le gal appli catio n. Not Available [address], [address], 12/18/2023 14:16:53 12/13/19 24 12/18/2023 STI PANEL neisseria gonorrhoeae GC neg negati ve normal This repor t is inten ded for us in clini chase monit oring and manag ement of patie nts. It is not inten ded for use in medic al-le gal appli catio n. Not Available [address], [address], 12/18/2023 14:16:53 05/15/20 24 05/18/2024 VAGIN ITIS PLUS STD PANEL bacterial vaginosis BV neg negati ve normal Not Available [address], [address], 05/18/2024 13:57:43 05/15/20 24 05/18/2024 VAGIN ITIS PLUS STD PANEL alejandro species C. spp neg negati ve normal Not Available [facility] [address] [place], [address], 05/18/2024 13:57:43 05/15/20 24 05/18/2024 VAGIN ITIS PLUS STD PANEL alejandro glabrata C. gla neg negati ve normal Not Available [address], [address], 05/18/2024 13:57:43 05/15/20 24 05/18/2024 VAGIN ITIS PLUS STD PANEL trichomonas vaginalis CV/TV TRICH neg negati ve normal Not Available [address], [address], 05/18/2024 13:57:43 05/15/20 24 05/18/2024 VAGIN ITIS PLUS STD PANEL chlamydia trachomatis CT neg negati ve normal This repor t is inten ded for us in clini chase monit oring and manag ement of patie nts. It is not inten ded for use in medic al-le gal appli catio n. Not Available [address], [address], 05/18/2024 13:57:43 05/15/20 24 05/18/2024 VAGIN ITIS PLUS STD PANEL neisseria gonorrhoeae GC neg negati ve normal This repor t is inten ded for us in clini chase monit oring and manag ement of patie nts. It is not inten ded for use in medic al-le gal appli catio n. Not Available [address], [address], 05/18/2024 13:57:43 05/15/20 24 05/20/2024 THINP REP TIS PAP clinical information: normal None given Not Available [facility] [address], [address], 05/20/2024 17:54:48 05/15/20 24 05/20/2024 THINP REP TIS PAP LMP: normal None given Not Available [facility] [address], [address], 05/20/2024 17:54:48 05/15/20 24 05/20/2024 THINP REP TIS PAP prev. Pap: normal None given Not Available [facility] [address], [address], 05/20/2024 17:54:48 05/15/20 24 05/20/2024 THINP REP TIS PAP prev. BX: normal None given Not Available [address], [address], 05/20/2024 17:54:48 05/15/20 24 05/20/2024 THINP REP TIS PAP source: normal Cervi x Not Available [address], [address], 05/20/2024 17:54:48 05/15/2005/20/2024 THINP REP TIS PAP statement of adequacy: normal Satis facto ry for evalu ation . Endoc ervic al/tr ansfo rmati on zone compo nent prese nt. Age and/o r menst rual statu s not provi ded Not Available [address], [address], 05/20/2024 17:54:48 05/15/20 24 05/20/2024 THINP REP TIS PAP interpretati on/result: normal Cytol ogy Resul ts: Negat mary for intra epith elial lesio n or malig haroldo . Not Available [address], [address], 05/20/2024 17:54:48 05/15/20 24 05/20/2024 THINP REP TIS PAP comment: normal This Pap test has been evalu ated with compu ter alicia rose [employer] o[employer] . Not Available [address], [address], 05/20/2024 17:54:48 05/15/20 24 05/20/2024 THINP REP TIS PAP cytotechnolo gist: normal GRISELDA, CT( CP) CT scree lianne locat ion: [place] [address] [place] [address] Not Available [facility] [address] [place], [address], 05/20/2024 17:54:48 05/15/2005/20/2024 THINP REP TIS PAP comment EXPLA NATGUSTAVO Y NOTE: The Pap is a scree lianne test for cervi chase cance r. It is not a diagn ostic test and is subje ct to false negat mary and false posit mary resul ts. It is most relia ble when a satis facto ry sampl e, regul viridiana obtai rukhsana, is submi tted with relev ant clini chase findi ngs and histo ry, and when the Pap resul t is evalu ated along with histo celestino and curre nt clini chase infor matio n. Not Available [facility] [address] , [place], [address], 05/20/2024 17:54:48 08/21/20 24 08/22/2024 STD SCREE LIANNE ([facility] ) hep BS Ag Non-Re active non-re active normal Not Available [facility] [address] [place], [address], 08/22/2024 11:08:14 08/21/20 24 08/22/2024 STD SCREE LIANNE ([facility] ) hep C Ab Non-Re active non-re active normal Not Available [facility] [address] [place], [address], 08/22/2024 11:08:14 08/21/20 24 08/22/2024 STD SCREE LIANNE ([facility] ) HIV 1/2 Ag/Ab Non-Re active non-re active normal Not Available [facility] [address] [place], [address], 08/22/2024 11:08:14 08/21/20 24 08/22/2024 STD SCREE LIANNE ([facility] ) syphilis Ab Non-Re active non-re active normal Not Available [facility] [address] [place], [address], 08/22/2024 11:08:14 08/21/20 24 08/23/2024 CULTU RE, URINE , ROUTI NE culture, urine, routine SEE NOTE CULTU RE, URINE , ROUTI NE Micro Numbe r: [id number] Test Statu s: Final Speci men Sourc e: Urine Speci men Quali ty: Adequ ate Resul t: Less than 10,00 0 CFU/m L of singl e Gram posit mary organ ism isola rose. No furth er testi ng will be perfo rmed. If clini omid indic ated, recol lecti on using a metho d to minim ize conta minat ion, with promp t trans jo ann to Urine Cultu re Trans port Tube, is recom julieta d. Not Available [facility] [address] [place], [address], 08/23/2024 03:28:00 Result Notes None recorded. Problems Name Problem SNOMED Code Status Onset Date Resolution Date Notes Provider Name and Address Organization Details Recorded Time Vaginal irritation 698275310 Active 2022 HALEY Son [facility] [place], [address], [facility] 3 22:49:00 Herpes simplex 96179499 Active 2023 HALEY Son [facility] [place], [address], [facility] 4 20:50:19 Vulval irritation 090467784 Active 2023 HALEY Son [address] [place], [address], [employer] [facility] 4 15:25:43 Dysuria 32588399 Active 2023 HALEY Son [address] [place], [address], [facility] 4 15:23:37 Candidal vulvovaginitis 57840219 Active 2023 HALEY Son [address] [facility], [place], [address], [facility] 13:38:50 Problem Notes None recorded. Procedures Surgical History Date Name Laterality Status Provider Name and Address Organization Details Recorded Time 05/15/20 Date of Last Pap Smear completed Contreras Alvarez [facility] 05/15/2024 14:48:36 09/05/20 Johnson-Lazaro operation for reconstruction of lateral ligaments of ankle completed Gizen Ho [facility] 12/13/2023 14:36:21 Imaging Results None recorded. Procedure Notes None recorded. Medical Equipment None Reported. Allergies Allergen ID Allergen Name Allergen Category Reaction Reaction Severity Criticality Documentation Date Start Date Code Code System Note Provider Name and Address Organization Details Recorded Time 954118 Product containin g penicilli n (product) medicatio n Not available Not available Not available 03/11/2023 33277 8001 SNOMED Marylouvan Cardenas [facility] 3 12:42:52 819427 Substance with sulfonami de structure and antibacte rial mechanism of action (substanc e) medicatio n hives mild Not available 05/15/2024 92808 8003 SNOMED Contreras Alvarez [facility] 14:47:08 Medications Name Sig Start Date Stop Date Status Note LastModified by Organization Details LastModified Time fluconazole 100 mg tablet 03/11 completed Not Available Not Available Not Available nystatin 100,000 unit/gram topical ointment APPLY TO THE AFFECTED AREA(S) BY TOPICAL ROUTE 2 TIMES PER DAY active Not Available Not Available No t Available fluconazole 150 mg tablet TAKE 1 TABLET BY MOUTH NOW. MAY REPEAT IN 3 DAYS NEEDED 08/21 completed Not Available Not Available Not Available valacyclovi r 1 gram tablet active Not Available Not Available Not Available meloxicam 15 mg tablet 12/12 completed Not Available Not Available Not Available ondansetron HCl 4 mg tablet TAKE ONE TABLET BY MOUTH EVERY 6 TO 8 HOURS NEEDED FOR NAUSEA AND VOMITING 12/12 completed Not Available Not Available Not Available valacyclovi r 500 mg tablet 03/11 completed Not Available Not Available Not Available nystatin-tr iamcinolone 100,000 unit/gram-0 .1 % topical ointment 2023 active Not Available Not Available Not Avai lable oxycodone-a cetaminophe n 5 mg-325 mg tablet TAKE ONE TABLET BY MOUTH EVERY 4 TO 6 HOURS NEEDED FOR PAIN max SIX TABLETS DAILY 12/12 completed Not Available Not Available Not Available aspirin 325 mg tablet,caridad yed release TAKE ONE TABLET BY MOUTH TWICE DAILY FOR 28 DAYS 12/12 completed Not Available Not Available Not Available benzonatate 100 mg capsule active Not Available Not Available Not Available triamcinolo ne acetonide 0.1 % topical ointment APPLY A THIN LAYER TO THE AFFECTED AREA(S) BY TOPICAL ROUTE 2 TIMES PER DAY active Not Available Not Available No t Available hydroxyzine HCl 25 mg tablet TAKE ONE TABLET BY MOUTH EVERY 6 HOURS 12/12 completed Not Available Not Available Not Available naproxen 500 mg tablet 12/12 completed Not Available Not Available Not Available NuvaRing 0.12 mg-0.015 mg/24 hr vaginal 03/11 completed Not Available Not Available Not Available escitalopra m 20 mg tablet active Not Available Not Available Not Available atomoxetine 40 mg capsule 05/15 completed Not Available Not Available Not Available bupropion HCl XL 150 mg 24 hr tablet, extended release active Not Available Not Available Not Available methylpheni date LA 20 mg biphasic 50-50 capsule,ext ended release 05/15 completed Not Available Not Available Not Available diclofenac 1 % topical gel APPLY 2 GRAMS TOPICALLY TO THE AFFECTED AREA FOUR TIMES DAILY 12/12 completed Not Available Not Available Not Available Vitals Date Recorded Body weight Body temperature Body mass index (BMI) Body mass index (BMI) [Percentile] Per age and sex Body height Systolic blood pressure Diastolic blood pressure Provider Name and Address Organization Details Last Updated DateTime 3 32029.2 2 g 97.8 [degF] 28.3 kg/m2 89 % 170.18 cm 120 mm[Hg] 70 mm[Hg] Marylou [facility] 3 12:40:44 Date Recorded Body height Body mass index (BMI) Body weight Body temperature Systolic blood pressure Diastolic blood pressure Provider Name and Address Organization Details Last Updated DateTime 4 170.18 cm 30.5 kg/m2 41759.7 9 g 97.1 [degF] 132 mm[Hg] 76 mm[Hg] [facility] 4 14:32:39 Date Recorded Body height Body mass index (BMI) Body weight Systolic blood pressure Diastolic blood pressure Provider Name and Address Organization Details Last Updated DateTime 05/15/2024 170.18 cm 28.6 kg/m2 24101.97 g 108 mm[Hg] 68 mm[Hg] Contreras Alvarez [facility] 4 14:57:16 Date Recorded Body height Body mass index (BMI) Body weight Systolic blood pressure Diastolic blood pressure Provider Name and Address Organization Details Last Updated DateTime 08/21/2024 170.18 cm 28.4 kg/m2 35725.66 g 120 mm[Hg] 70 mm[Hg] Tamar Henry [facility] 15:12:52 Social History Question Answer Notes LastModified by Organizat ion Details LastModified Time Tobacco Smoking Status Never Smoker Marylou rivas, [facility] 03/11/2023 12:47:36 What Is Your Level Of Alcohol Consumption? Occasional Information not available 03/11/2023 How Many Times Per Week Do You Consume Alcohol? Less Than 1 Time Per Week Information not available 12/13/2023 Are You Blind Or Do You Have Difficulty Seeing? No Information not available 03/11/2023 Are You Currently Employed? No Information not available 12/13/2023 Are You Deaf Or Do You Have Serious Difficulty Hearing? No Information not available 03/11/2023 What Type Of Diet Are You Following? REGULAR Information not available 03/11/2023 Which Illicit Or Recreational Drugs Have You Used? Marijuana Information not available 03/11/2023 Do You Or Have You Ever Used E-cigarettes Or Vape? Current User Of Electronic Cigarettes Information not available 03/11/2023 How Many Children Do You Have? 0 Information not available 03/11/2023 What Is Your Relationship Status? Single Information not available 03/11/2023 Are You Sexually Active? Yes Information not available 03/11/2023 Do You Or Have You Ever Used Smokeless Tobacco? Never Used Smokeless Tobacco Information not available 12/13/2023 Do You Use Any Illicit Or Recreational Drugs? Yes Information not available 03/11/2023 Have You Used IV Drugs? No Information not available 03/11/2023 Do You Or Have You Ever Used Any Other Forms Of Tobacco Or Nicotine? Yes Information not available 03/11/2023 Sex: Unknown Functional Status Question Answer Note LastModified by Organization D etails LastModified Time What is your exercise level? None Information not available 03/11/2023 Mental Status None recorded. Family History Relationship Description Onset Age of this Age Resolved Age Notes LastModified by Organization Details LastModified Time Maternal Grandmother Malignant tumor of breast [email or web address] Not available 2022 12:46:42 Medical History Condition Response Other Cancer N High Blood Pressure N Colon Cancer N Cytomegalovirus N Hyperthyroidism N Blood Transfusion N MRSA N Herpes (HSV) Y Breast Cancer N Lung Cancer N Hypothyroidism N Incontinence N Panic Attacks N Neurological Disorder N Deep Vein Thrombosis N Anxiety Disorder Y Autoimmune disease N Arthritis N Shingles N Tuberculosis/Positive PPD N Polycystic Ovarian Syndrome N Cervical Cancer N Chlamydia N Hematuria N Varicosities N Stroke N Seasonal allergies N Crohn's Disease N Alzheimer's/Dementia N COPD/Emphysema N Endometriosis N HPV/Genital Warts N IBS (Irritable Bowel Syndrome) N History of Abnormal Pap N High Cholesterol N Liver Disease N Kidney Infection N Fibromyalgia N Ulcer N Kidney Disease N HIV N Gallbladder disease N Von Willebrand disease N Sickle Cell Disease/Trait N ADD/ADHD Y Eating Disorder N Diabetes Mellitus (non-insulin dependent ) N Anemia N Ovarian Problems N Multiple Sclerosis N Gonorrhea N Frequent Urinary Tract infections N Osteopenia N Headaches/migraines N GERD (reflux) N Ovarian Cancer N Diabetes (insulin dependent) N Seizures/Epilepsy N Fibroids N Asthma N Heart Attack N Endometrial Cancer N Lupus N Rubella N Blood Clotting Disorder N Bipolar Disorder N Diabetes Mellitus (during ) N Ulcerative Colitis N Hepatitis N Heart Disease N Pulmonary Embolism N RPR N Chicken Pox N Osteoporosis N Gynecological History Statement/Question Response Flow Moderate Date of last HPV Date of LMP 04/28/2024 HPV Vaccine Y Duration of Flow (days) 7 Most Recent Mammogram Current Control Method None Age at Menarche 15 Date of Last Colonoscopy Most Recent Bone Density Frequency of Cycle (Q days) 28 Date of Last Pap Smear 05/15/2024 Obstetrics History GPAL:G 0 P 0 0 0 0 Past Encounters Encounter ID Performer Location Encounter Start Date Encounter Closed Date Diagnosis/Indication Diagnosis SNOMED-CT Code Diagnosis ICD10 Code Diagnosis Note [id number] HALEY Son [facility] [address] [place] [address] 03/11/2023 12:33:59 03/11/2023 15:29:05 Dyspareunia 28568332 N94.10 Vaginal irritation 62782 6004 N89.8 normal examvagina l cx obtained [id number] HALEY Son [facility] [address] [place] [address] 12/13/2023 14:27:55 12/13/2023 15:16:29 Herpes simplex 66155968 B00.9 Labial lesion resolvedVa ginal cx obtainedFo llow-up pending results Venereal d isease screening 050878186 Z11.3 [id number] Sanju Dean [facility] [address] [place] [address] 05/15/2024 14:32:22 05/15/2024 17:07:13 Gynecologic examination 62102712 Z01.419 WWE completed* Cervical cancer screening: Pap obtained. Cervical cancer screening guidelines reviewed*I nfectious disease screening: STI screening - cervical cx obtained*C ontracepti on - Condoms. She declines another form of control*[facility] cancer screening: CBE nml. Discussed breast self-aware ness*Discu ssed healthy diet, regular exercise, probiotics *Social- discussed use of e-cigs and marijuana* Mental Health- PHQ-9: 12. Discussed talking to her psychiatri c provider about her score. Irene deniesSI/H I/Thoughts or behaviors of self-harm. Screening for malignant neoplasm of cervix 603924656 Z12.4 Cervical cancer screening is used to find abnormal changes in the cells of the cervix that could lead to cancer. Screening includes the Pap test and, for some women, testing for a virus called human papillomav irus (HPV). The main cause of cervical cancer is infection with HPV. Depression screening 171 940490 Z13.31 PHQ-9 score: 12Shidania will follow up with her psychiatri c-mental health provider Vulval irritation 009148 003 N90.89 Advised to rtc if there is no improvemen t or worsening of symptoms Venereal d isease screening 043033020 Z11.3 Discussed the various types of STDs, related symptoms and the potential consequenc es (including effects on fertility) Condom use to reduce risk for transmissi on 4815848 HALEY Son [facility] [address] [facility] ELAINE PAUL [id number] 08/21/2024 14:57:31 08/21/2024 15:39:49 Venereal disease screening [id number] Z11.3 Ordered serum testing to check for HIV and other sexually transmitte d infections . Dysuria [id number] R30.0 Ordered a culture to evaluate for urinary tract infection, given the patient's persistent burning sensation. Vulval irritation [id number] N90.89 Topical steroid ointment as prescribed to manage irritation . Health Concerns Section Related Observation LastModified by Organization Detai ls LastModified Time None Recorded Concern Status LastModified by Organization Details LastModified Time None Recorded Advance Directives Directive None Recorded Payers Insurance Date Sequence Insurance Name Policy Number Policy Barba Covered Member ID Barba Member ID Guarantor Name 02/11/2024 1 [facility] [place] [id number] Irene White [id number] Irene White 06/29/2024 2 [facility] - [employer] [place] ON OR AFTER 2019 (MEDICARE REPLACEMENT/AD [place] - HMO) [id number] Janina Bella Beata [id number] Irene White 02/11/2024 1 [place] [id number] Janina Bella White [id number] Irene White 08/21/2024 1 [facility] [place] [id number] Irene White [id number] Irene White 04/29/2023 1 [place] [id number] Janina Cota [id number] Irene Cota 05/15/[address] [facility]: (O) [id number] Janina Cota [id number] Irene Cota 12/12/2023 2 [facility] [place] Irene Cota [id number] Irene Cota Notes Date Note Type Note Provider Name and Address Organization Details Recorded Time 3 text/html DyspareuniaReported bypatient.Location:vulva ; vagina Discharge:no fishy odor; no thick vaginal discharge; no watery vaginal discharge Vulva Pain:no pain Pelvic Pain:no pain Abdominal Pain:no pain Dysparuniadysparunia;wit h insertion Irene states she had a yeast infection and took the killer (boric acid), then started having issues States she gets yeast infections all the time . Has herpes that was diagnosed 1 year ago.She reports dyspareunia on entry; reports vulvar swelling.She started depo and reports irregular bleeding and gained weight; she stopped bleeding 4 days ago. HALEY Son [address] [place], [address], [facility] Zuu Onlnine IV 03/14/2023 22:50:06 4 text/html Irene presents with c/o an area on labia that looks like a blister. She first noticed it 2 weeks agoReports herpes diagnosis by PCP and takes valtrex dailyShe is in a monogamous relationshipShe reports burning and irritation HALEY Son [address] [facility], [place], [address], [facility] Zuu Onlnine IV 12/23/2023 20:51:21 4 text/html Annual GYNReported bypatient.Menstrual cycle:Irene presents for her annual gynecological examination. She has regular menstrual cycles lasting _7__ days, with a cycle length of __28___ days. She reports moderate____ flow. LMP: She denies dysmenorrhea, menorrhagia, or intermenstrual bleeding. She denies vaginal discharge, itching, odor, pelvic pain, abnormal uterine bleeding, or changes in bowel or bladder habits. Urinary symptoms:No hematuria; No incontinence Vulva:No genital lesion; Irene reports vulvar irritation Vagina:Normal vaginal discharge; The patient is currently sexually active with a _male__ partner in a monogamous relationship. She reports having HSV. She denies other history of sexually transmitted infections, pain during intercourse , or changes in libido. She desires cervical STI screening today She uses condoms and spermicides for contraception. She has/ does not have plans for in the near future Breast:No breast pain; No breast lump; No nipple discharge; She denies skin changes Sexual complaints:No sexual complaints; No pain during intercourse; Normal libido Menopausal Symptoms:No menopausal symptoms; Normal vaginal lubrication Psychological symptoms:Irene has a h/o anxiety and ADHD and is seeing a psychiatric provider. She tales Lexapro 20 mg. Her PHQ-9 score today is 12. She denies suicidal ideation and thoughts/behaviors of self-harm Preventive measures:She has no history of abnormal Pap smears, cervical dysplasia, or HPV infection. Last pap- when I was 18 A mammogram is not indicated for her age group She is up to date with her Gardasil vaccination. There is no significant family history of ovarian cancer, endometrial cancer, or other gynecological conditions. Her FH is significant for breast cancer in her maternal GM Tobacco, alcohol, illicit drug use- She drinks alcohol occasionally and smokes e-cigs. Marijuana- she admits to using Sanju Dean, [facility] [address] [facility], [place], [address], [facility] 05/20/2024 11:39:40 4 text/html Vaginal/Vulvar ProblemReported bypatient.Context:Irene is a 24-year-old female presenting with vulval irritation and a burning sensation after urination. She reports a history of recurrent irritation in the vulval area. Initially attributed to latex condoms, she has since switched to non-latex condoms but has not yet assessed their impact. The irritation was previously treated at an emergency room visit, where she was given fluconazole for a suspected yeast infection, which resolved the itching but left a residual burning sensation, particularly after urination and wiping. The burning is localized to the external genital area, not internal. The patient also experiences vulval lesions, attributing one prior outbreak to stress and the use of medication, which led to improvement. Currently, she utilizes a steroid ointment as needed. Additionally, the patient is concerned about potential exposure to HIV, largely due to coincidental interactions with a known HIV-positive coworker. She reports significant anxiety about this possibility, affecting her appetite for several days. She was last tested for HIV in November 2021. She seeks reassurance through testing, feeling stressed about her long-term health and considerations for her partner. Associated Symptoms:no vaginal itching; no vaginal irritation; no vaginal pain; no vulvar swelling/erythema; no vulvar pain; no pelvic pain; no dyspareunia; no fever; no abdominal pain HALEY Son [address] [place], [address], [facility] [place] 08/26/2024 16:42:24 OBGyn Episode No OBEpisode recorded.
== END 2025-01-15 21:05 | disposition home or self-care (01) ==
PROVIDERS: Emergency Provider Emergency Medicine
DX: S01.01XA Laceration without foreign body of scalp, initial encounter (principal); W22.8XXA Striking against or struck by other objects, initial encounter
CPT/HCPCS: 12002; 70450; 99284; A9270

== ENCOUNTER 2025-05-20 14:42 | Emergency (ER) | payer BC, SELFPAY ==
--- NOTE | 2025-05-20 14:45 | ED_ITS ---
HPI - Neck Pain/Injury General Chief Complaint: Headache Stated Complaint: HEADACHE/STIFF NECK Time Seen by Provider: 05/20/25 14:45 Source: patient Mode of arrival: ambulatory Limitations: no limitations History of Present Illness HPI Narrative: Irene is a 25-year-old female patient presenting to the clinic today with complaints of headache and stiff neck x 2-3 days since her boyfriend broke up with her. She reports that she is having some light sensitivity and nausea. She denies any vomiting. States it feels as though she has oral yeast infection. Reports she is having a high level of anxiety- feels like she is having a mental breakdown. Rates her pain currently an 8/10. She has not taken any medications for her symptoms. Related Data Home Medications ?Medication ?Instructions ?Recorded ?Confirmed ?Last Taken ?Type bupropion HCl 150 mg 24 hr tablet, mg PO 05/20/25 Unk nown History extended release escitalopram oxalate 20 mg tablet mg 05/20/25 Unknown History methylphenidate HCl 10 mg biphasic mg PO 05/20/25 Unk nown History 50-50 capsule,extended release valacyclovir 1 gram tablet mg 05/20/25 Unknown Histor y Allergies Allergy/AdvReac Type Severity Reaction Status Date / Time Penicillins Allergy Unknown Unknown Verified 05/20/25 14:57 Sulfa (Sulfonamide Allergy Unknown Unknown Verified 05/20/25 14:57 Antibiotics) Review of Systems Review of Systems: Pertinent positives per HPI. Patient denies any fever, chills, rash, visual changes, dizziness, cough, runny nose, shortness of breath, chest pain, palpitations, vomiting, diarrhea, constipation, abdominal pain, or any urinary issues. PMFSH Comments At the time of my signature, I reviewed and agree with the nursing past medical, surgical, social, and family history. There is no relevant family history pertinent to the patient complaint. Exam Narrative: General: Well-developed,obese, in no apparent distress Head: Normocephalic, atraumatic Eyes: Pupils equally round and reactive to light bilaterally, EOM intact, sclera and conjunctive clear, no discharge, lids normal Ears: TMs intact and clear, ear canals clear, no drainage, grossly hearing normal. Nose: Nares patent, no discharge, no inflammation, no sinus tenderness. Mouth: Oropharynx mildly red without lesions or masses, good dentition, MMM. Tongue midline, even rise and fall of uvula Neck: Supple, trachea midline, no enlargement of anterior or posterior cervical nodes, no thyroid masses or goiter palpable. Cardio: Regular rate and rhythm, s1 and s2 normal, no murmur appreciated. Resp: Clear to auscultation bilaterally anteriorly and posteriorly, no rhonchi, rales, wheezing or rubs Musculoskeletal: No deformity, non-tender to palpation, grossly normal range of motion, muscle strength strong and equal, peripheral pulse strong, no edema, no cyanosis, normal gait and station Neuro: Alert and oriented x4 with normal speech, no focal deficits, cranial nerves I through XII intact, muscle strength 5 out of 5, sensation intact bilaterally, negative Romberg test Psych: Alert and oriented x 4, Depressed mood and affect, rapid change of mood- goes from crying/smiling/laughing, no thoughts of harming herself or others. Course Course Emergency Course: Portions of this record may have been created with voice recognition software. Level of Care: Express Care Visit Vital Signs Vital signs: Vital Signs Temperature 37.0 C 05/20/25 14:57 Pulse Rate 104 H 05/20/25 14:57 Respiratory Rate 16 05/20/25 14:57 Blood Pressure 157/90 H 05/20/25 14:57 Pulse Oximetry 99 05/20/25 14:57 Temperature 37.0 C 05/20/25 14:57 Pulse Rate 104 H 05/20/25 14:57 Respiratory Rate 16 05/20/25 14:57 Blood Pressure 157/90 H 05/20/25 14:57 Pulse Oximetry 99 05/20/25 14:57 Vital signs reviewed MDM - Neck Pain/Injury MDM Narrative Medical decision making narrative: At the time of visit patient is resting comfortably on the exam table. Patient appears to be nontoxic. Complaints of headache and stiff neck x 2-3 days since her boyfriend broke up with her. She reports that she is having some light sensitivity and nausea. She denies any vomiting. States it feels as though she has oral yeast infection. Reports she is having a high level of anxiety- feels like she is having a mental breakdown. Rates her pain currently an 8/10. She has not taken any medications for her symptoms. Patient has normal neuro exam- negative Brudzinski's and Kernig's sign. Patient denies any thoughts of harming herself or hurting anyone else. Patient has a violent change in mood-goes from smiling, laughing, crying, and depressed Plan: I suspect patient has anxiety with acute stress headache. Offer to send patient to the ER for further evaluation as she states she is having a mental breakdown for referring her to [facility]. Patient declined. Patient reports she is appreciative of everything we have done for her in that she will be fine. Supportive measures were discussed with the patient and they voiced understanding discharge instructions and agrees to treatment plan. Return precautions reviewed Differential Diagnosis Differential diagnosis: Likely disc disorder of cervical region, torticollis, strain of neck muscle and other (Stress headache, migraine headache, anxiety, meningitis) Lab Data Labs: Lab Results 05/20/25 Range/Units 14:51 POC Grp A Strep Screen Negative (Negative) Discharge Plan Discharge Clinical Impression: Acute anxiety, Stress headache Patient Disposition: Home Condition: Stable Instructions: Antibiotic Form, Acute Headache (ED), Anxiety (ED) Additional Instructions: I suspect you have a tension headache due to stress and anxiety. Strep test is negative in the clinic today. We will send strep for culture. Increase fluids and stay hydrated May take Tylenol/Motrin as needed for pain Follow-up with your psychiatrist or behavior health therapist as discussed If you develop any thoughts of harming herself or harming others going to the emergency room immediately or calling 911 Patient Language: Arabic Prescriptions: No Action valacyclovir 1 gram tablet escitalopram oxalate 20 mg tablet bupropion HCl 150 mg tablet extended release 24 hr PO methylphenidate HCl 10 mg capsule,ER biphasic 50-50 PO Follow-up/Referrals: UNKNOWN,DOCTOR [Non-Staff] Time of Disposition: 15:13 Quality NIHSS Nursing Documentation ED NIHSS nursing documentation: reviewed/agree
[2025-05-20 14:57] VITALS: BP 157/90; PULSE 104; RESP 16; TEMP 37; O2SAT 99
[2025-05-20 15:05] LABS: EDSTREPNEGPOS1 Negative (Negative)
== END 2025-05-20 15:18 | disposition home or self-care (01) ==
PROVIDERS: Emergency Provider Nurse Practitioner Family
DX: F41.9 Anxiety disorder, unspecified (principal); G44.209 Tension-type headache, unspecified, not intractable
CPT/HCPCS: 87081; 87880; 99213; G0463